=== PATIENT | male | born 1995 | race Caucasian/White ===

== ENCOUNTER 2024-06-09 20:01 | Emergency (ER) | payer MEDICAID ==
[~2024-06-09] VITALS: Ht 182.9 cm; Wt 80.7 kg
[~2024-06-09 20:01] MED LIST: FLUT16SP10 NS; IBUP-862 PO
[2024-06-09] MEDS ORDERED: DOXY-460 PO (21:00)
[2024-06-09] MEDS: DOXYCYCLINE 100MG CAPSULE PO STA (21:07)
[2024-06-09 21:25] VITALS: BP 125/64; PULSE 72; RESP 16; TEMP 98.5; O2SAT 100
== END 2024-06-09 21:14 | disposition home or self-care (01) ==
LOC: ER 20:01
DX: L03.111 Cellulitis of right axilla (principal); Z88.0 Allergy status to penicillin
CPT/HCPCS: 99283; A6449

== ENCOUNTER 2024-08-26 23:49 | Emergency (ER) | payer MEDICAID ==
[~2024-08-26] VITALS: Ht 182.9 cm; Wt 81.8 kg
[2024-08-27 00:05] VITALS: TEMP 98.8
[2024-08-27] MEDS ORDERED: SERT-432 PO (00:35)
[2024-08-27] MEDS ORDERED: TRAZ-251 PO (00:36)
[2024-08-27 01:29] LABS: BASOPHILS % (AUTO) 0.7 % (0-1); EOSINOPHILS # (AUTO) 0.2 X10'3 (0-0.9); EOSINOPHILS % (AUTO) 3.4 % (0-6); HEMATOCRIT 41.7 % (42.0-52.0); HEMOGLOBIN 14.4 g/dl (14.0-17.9); LYMPHOCYTES # (AUTO) 1.3 X10'3 (1.1-4.8); LYMPHOCYTES % (AUTO) 24.8 % (21-51); MEAN CORPUSCULAR HEMOGLOBIN 30.1 PG (27.0-31.0); MEAN CORPUSCULAR HGB CONC 34.5 g/dL (33.0-36.5); MEAN CORPUSCULAR VOLUME 87.4 FL (78-98); MEAN PLATELET VOLUME 8.2 FL (7.4-10.4); MONOCYTES # (AUTO) 0.5 X10'3 (0-0.9); MONOCYTES % (AUTO) 9.1 % (2-12); NEUTROPHILS # (AUTO) 3.2 X10'3 (1.8-7.7); PLATELET COUNT 207 X10'3 (140-440); RED BLOOD COUNT 4.78 X10'6 (4.70-6.10); RED CELL DISTRIBUTION WIDTH 13.3 % (11.5-14.5); WHITE BLOOD COUNT 5.1 X10'3 (4.5-11.0)
[2024-08-27 01:36] LABS: ALBUMIN 3.9 G/DL (3.4-5.0); ANION GAP 4 (8-16); BLOOD UREA NITROGEN 16 MG/DL (7-18); BUN/CREATININE RATIO 16.5 (10.0-20.0); CALCIUM 8.4 MG/DL (8.5-10.1); CHLORIDE 109 MMOL/L (99-107); CREATININE 0.97 MG/DL (0.60-1.10); ETHANOL < 10 MG/DL (<10); GLUCOSE 140 MG/DL (70-104); POTASSIUM 4.1 MMOL/L (3.5-5.1); SODIUM 141 MMOL/L (135-145); eCRCL 123 ML/MIN; eGFR > 90 ML/MIN
[2024-08-27 04:06] VITALS: BP 118/68; PULSE 80; RESP 16; O2SAT 99
[2024-08-27] MEDS ORDERED: SERT-153 PO (10:31)
== END 2024-08-27 04:09 | disposition home or self-care (01) ==
LOC: ER 23:49
DX: F32.A Depression, unspecified (principal); R45.851 Suicidal ideations; Z88.0 Allergy status to penicillin; Z20.822 Contact with and (suspected) exposure to COVID-19
CPT/HCPCS: 36415; 80048; 80320; 85025; 87811; 99283

== ENCOUNTER 2024-08-27 09:25 | Emergency (ER) | payer MEDICAID ==
[~2024-08-27] VITALS: Ht 182.9 cm; Wt 86.2 kg
[~2024-08-27 09:25] MED LIST changes: +SERT-432 PO; +TRAZ-251 PO
[2024-08-27] MEDS ORDERED: SERT-153 PO (10:31)
[2024-08-27] MEDS: LORazepam 1 MG tablet PO ONE (10:48)
[2024-08-27 11:08] VITALS: BP 131/78; PULSE 68; RESP 16; TEMP 98; O2SAT 99
== END 2024-08-27 11:11 | disposition home or self-care (01) ==
LOC: ER 09:25
DX: F41.9 Anxiety disorder, unspecified (principal); R45.851 Suicidal ideations; F32.A Depression, unspecified; Z88.0 Allergy status to penicillin
CPT/HCPCS: 99283

== ENCOUNTER 2024-08-28 20:35 | Emergency (ER) | payer MEDICAID ==
[~2024-08-28] VITALS: Ht 182.9 cm; Wt 85.0 kg
[~2024-08-28 20:35] MED LIST changes: +SERT-153 PO
[2024-08-28] MEDS: ketorolac trometh 15mg/ml vial 15 MG/ML ML IM ONE (22:22)
[2024-08-28 22:32] VITALS: BP 120/70; PULSE 86; RESP 18; TEMP 98.6; O2SAT 99
== END 2024-08-28 22:33 | disposition home or self-care (01) ==
LOC: ER 20:36
DX: M25.521 Pain in right elbow (principal); F17.200 Nicotine dependence, unspecified, uncomplicated; Z88.0 Allergy status to penicillin; V00.131A Fall from skateboard, initial encounter; Y93.51 Activity, roller skating (inline) and skateboarding; Y92.89 Other specified places as the place of occurrence of the external cause; Y99.8 Other external cause status
CPT/HCPCS: 73080; 96372; 99283; J1885

== ENCOUNTER 2024-10-06 08:37 | Emergency (ER) | payer MEDICAID ==
[~2024-10-06] VITALS: Ht 182.9 cm; Wt 86.7 kg
[~2024-10-06 08:37] MED LIST changes: -FLUT16SP10 NS; -IBUP-862 PO; -SERT-153 PO
[2024-10-06 08:41] VITALS: BP 109/64; PULSE 76; RESP 16; O2SAT 100
--- NOTE | 2024-10-06 09:56 | Physician Documentation ---
History of Present Illness ~ Chief Complaint: Mouth Pain Stated Complaint: UPPER LIP SWELLING Time Seen by MD: 09:04 Primary Medical Doctor: [facility] Source: patient Mode of Arrival: POV Exam Limitations: no limitations HPI 28-year-old male with chief complaint painful area at the bottom of his right nostril which started a few days ago. No precipitating injury or event. No pre arrival treatment. States he has never had anything like this before. Reports that the pain worsens when he applies any pressure to the area. No drainage. No fever, chills, lip pain, mouth pain, headaches, sinus pain. Medication Reconciliation Allergies: Coded Allergies: Penicillins (Verified Allergy, Unknown, rash, 08/27/24) Uncoded Allergies: CILLI (Allergy, Unknown, 10/27/14) all cillins Scheduled Sertraline HCl (Sertraline HCl), 1 TAB PO DAILY, (Reported) Scheduled PRN Trazodone HCl (Trazodone HCl), 1 TAB PO HS PRN for pain, (Reported) Past Medical History Past Medical History: No Pertinent History, Anxiety, Depression Past Surgical History: no surgical history Drug Use: none Lives In: Other Review of Systems All Other Systems at this time: Reviewed and Negative Physical Exam Vital Signs: Temperature: 98.2, Source: Oral, Heart Rate: 76, Respiratory Rate: 16, BP: 109/64, Pulse Oximetry: 100, Weight: 86.700 Oxygen Flow Rate: 0 Physical Exam GENERAL: Alert, no acute distress. HEENT: NCAT, EOMI, PERRL, RIGHT BASE OF NARE ERYTHEMATOUS AND EDEMATOUS, MOST OF THE EDEMA AND ERYTHEMA SURROUND A HAIR FOLLICLE JUST INSIDE THE RIGHT NOSTRIL. EDEMA AND ERYTHEMA DOES NOT EXTEND INTO LIP. NECK: Supple, trachea midline. NO CERVICAL LAD OR TTP. CARDIAC: Regular rate and rhythm, no murmurs, rubs, or gallops. RESPIRATORY: Equal breath sounds, clear to auscultation bilaterally, no respiratory distress. MUSCULOSKELETAL: Normal range of motion, nontender, no swelling. Normal gait. NEUROLOGICAL: Awake, alert, and oriented x 3. SKIN: Warm/dry, no pallor, no rash. PSYCH: Alert and appropriate. Affect congruent with mood. Speech is clear. Good eye contact. Progress Results/Orders Results/Orders Vital Signs 10/06/24 08:41 Temp 98.2 Pulse 76 Resp 16 B/P (MAP) 109/64 Pulse Ox 100 O2 Flow Rate 0 Medical Decision Making Nose Diff. Dx: Considerations: Include: Abrasion, Anterior nasal bleed, Avulsion, Contusion, Coagulopathy, Fracture-nasal bone, Fracture-septum, Hypertension, Laceration, Posterior nasal bleed, Retained foreign body, Septal hematoma Departure Time of Disposition: 09:56 Disposition: 01 HOME / SELF CARE / HOMELESS Impression: Primary Impression: Pustule of nostril Condition: Stable Discharge Instructions: Nasal Abscess Additional Instructions: START ANTIBIOTIC WARM COMPRESSES TO AREA IF FEVER, CHILLS, INCREASING PAIN OR SWELLING RETURN TO ER Referrals: NO PRIMARY CARE PROVIDER (PCP) Prescriptions Mupirocin* (Bactroban*) 22 Gm Tube 1 APPLIC TOP Q8H for 7 Days, #22 GM apply to affected area(s) Prov: LEONA CLOUD 10/06/24 Sulfamethoxazole/Trimethoprim (Bactrim Ds Tablet) 800 Mg-160 Mg Tablet 1 TAB PO Q12H for 10 Days, #20 TAB Prov: LEONA CLOUD 10/06/24 Education Educated: Patient Educated regarding: diagnosis, treatment, need for follow up Signature Scribe Signature: X Attestation: LEONA KATHLEEN October 06, 2024 09:56
[2024-10-06] MEDS ORDERED: SULF1TAB49 PO (09:57)
[2024-10-06] MEDS ORDERED: MUPI22OI30 TOP (09:57)
[2024-10-06 10:05] VITALS: TEMP 98.2
[2024-10-07] MEDS ORDERED: LIDO30CR TOP (22:45)
[2024-10-07] MEDS ORDERED: HYDR-3973 PO (22:45)
== END 2024-10-06 10:06 | disposition home or self-care (01) ==
LOC: ER 08:38
DX: L08.9 Local infection of the skin and subcutaneous tissue, unspecified (principal); Z88.0 Allergy status to penicillin; Z79.899 Other long term (current) drug therapy
CPT/HCPCS: 99283

== ENCOUNTER 2024-10-07 21:40 | Emergency (ER) | payer MEDICAID ==
[~2024-10-07] VITALS: Ht 182.9 cm; Wt 85.8 kg
[~2024-10-07 21:40] MED LIST changes: +MUPI22OI30 TOP; +SULF1TAB49 PO
[2024-10-07] MEDS ORDERED: HYDR-3973 PO (22:45)
[2024-10-07] MEDS ORDERED: LIDO30CR TOP (22:45)
--- NOTE | 2024-10-07 22:46 | Physician Documentation ---
History of Present Illness ~ Chief Complaint: Wound Re-Check Stated Complaint: MOUTH PAIN Time Seen by MD: 22:07 Primary Medical Doctor: [facility] HPI 28-year-old male reports a chief complaint of wound check. Patient currently has pain to his right Velásquez due to an ingrown hair he was diagnosed with a recently. Patient is given Bactrim and bacitracin but states he is still endorsing pain. Patient currently denies fevers or chills. Patient states he is having pain secondary to the wound which he states isn't getting any better but he has not progressing either. Denies active drainage or discharge. No other complaints at this time Tetanus within 5 years?: Yes Medication Reconciliation Allergies: Coded Allergies: Penicillins (Verified Allergy, Unknown, rash, 08/27/24) Uncoded Allergies: CILLI (Allergy, Unknown, 10/27/14) all cillins Scheduled Mupirocin* (Bactroban*), 1 APPLIC TOP Q8H Sertraline HCl (Sertraline HCl), 1 TAB PO DAILY, (Reported) Sulfamethoxazole/Trimethoprim (Bactrim Ds Tablet), 1 TAB PO Q12H Scheduled PRN Trazodone HCl (Trazodone HCl), 1 TAB PO HS PRN for pain, (Reported) Past Medical History Past Medical History: No Pertinent History, Anxiety, Depression Past Surgical History: no surgical history Drug Use: none Lives In: Other Physical Exam Vital Signs: Temperature: 98.5, Source: Oral, Heart Rate: 63, Respiratory Rate: 16, BP: 116/77, Pulse Oximetry: 97, Weight: 85.800 Oxygen Flow Rate: 0 Physical Exam General: Well developed, well nourished, no distress. HEENT: Right nares positive for a indurated erythematous mass to the right Velásquez which he is positive for tenderness to palpation. Negative for active drainage or discharge. Neck: Full range of motion, supple. Respiratory: Lungs clear, no respiratory distress. Chest: No accessory muscle use, nontender. Cardiovascular: Regular rate and rhythm. Gastrointestinal: Soft, nontender, nondistended. Bowel sounds present. Extremities: Normal range of motion, nontender, normal capillary refill, no deformity. Back: No midline tenderness, no CVA tenderness. Neurologic: Oriented x4. Distal gross motor and sensory intact all four extremities. Moves all 4 extremities spontaneously. Psychiatric: Normal mood and affect. Skin: Normal color, warm and dry. No edema, no ecchymosis Progress Results/Orders Results/Orders Vital Signs 10/07/24 21:50 Temp 98.5 Pulse 63 Resp 16 B/P (MAP) 116/77 Pulse Ox 97 O2 Flow Rate 0 Medical Decision Making Additional info obtained from: old records Findings After detailed discussion and joint medical decision-making, diagnostic and imaging results were discussed with the patient. At this time patient we will be given medication for pain but advised to continue with the Bactrim. Patient will be given topical medication as well. ER precautions were given. At this time and I and does not warranted due to wound being indurated versus fluctuant. Patient agrees to this. Patient advised to also apply warm compress. ER precautions were given. Patient is stable upon discharge. All patient questions answered to satisfaction Differential Dx:Considerations: Include: Abscess, Cellulitis, Dressing change, Healing wound Departure Disposition: 01 HOME / SELF CARE / HOMELESS Impression: Primary Impression: Cellulitis Additional Impression: Pustule of nostril Condition: Stable Discharge Instructions: Abscess, Care After, Wound Care, Adult Referrals: NO PRIMARY CARE PROVIDER (PCP) Prescriptions Lidocaine/Prilocaine (Lidocaine-Prilocaine Cream) 2.5 %-2.5 % Cream..g. 1 APPLIC TOP UD, #30 GM 0 Refills Prov: HANNAH SOTELO 10/07/24 Hydrocodone Bit/Acetaminophen (Hydrocodone-Apap 10-325 Tablet) 10mg/325mg Tablet 1 TAB PO QID PRN PRN for pain for 5 Days, #20 TAB Prov: HANNAH SOTELO 10/07/24 Education Educated: Patient Educated regarding: diagnosis, treatment Signature Scribe Signature: none used Attestation: Scribed for Hannah Sotelo by Hannah FARLEY . 10/07/24 22:46 HANNAH SOTELO October 07, 2024 22:46
[2024-10-07] MEDS: ondansetron 4mg rapidly disintigrating tab PO ONE (23:07)
[2024-10-07] MEDS: ketorolac trometh 30MG/ML vial 30 MG/ML VIAL IM ONE (23:09)
[2024-10-07] MEDS: HYDROcodone/acetaminophen 5mg/325mg tablet PO ONE (23:11)
[2024-10-07] MEDS: dexamethasone sod phosphate 10mg/ml inj IM STA (23:12)
[2024-10-07] MEDS: CefTRIAXone 1000mg IM Kit (w/lidocaine diluent) IM ONE (23:14)
[2024-10-08 00:22] VITALS: BP 116/71; PULSE 68; RESP 16; TEMP 98.5; O2SAT 98
[2024-10-09] MEDS ORDERED: CEPH-585 PO (22:04)
== END 2024-10-08 00:25 | disposition home or self-care (01) ==
LOC: ER 21:41
DX: J34.0 Abscess, furuncle and carbuncle of nose (principal); L08.9 Local infection of the skin and subcutaneous tissue, unspecified; Z88.0 Allergy status to penicillin; Z79.899 Other long term (current) drug therapy
CPT/HCPCS: 96372; 99284; J0696; J1100; J1885

== ENCOUNTER 2024-10-09 21:08 | Emergency (ER) | payer MEDICAID ==
[~2024-10-09] VITALS: Ht 182.9 cm; Wt 85.8 kg
[~2024-10-09 21:08] MED LIST changes: +HYDR-3973 PO; +LIDO30CR TOP
--- NOTE | 2024-10-09 21:20 | Physician Documentation ---
History of Present Illness ~ Stated Complaint: FACIAL SWELLING Time Seen by MD: 21:09 Primary Medical Doctor: [facility] HPI 28-year-old male returns to the ED for ongoing complaints of an abscess inferior aspect of the right side patient has no was placed on Bactrim. Since the have increased pain swelling has been vomiting. Day of Onset: October 09, 2024 Tetanus Within 5 Years: Yes Medication Reconciliation Allergies: Coded Allergies: Penicillins (Verified Allergy, Unknown, rash, 08/27/24) Uncoded Allergies: CILLI (Allergy, Unknown, 10/27/14) all cillins Scheduled Cephalexin*Monohydrate* (Keflex*), 1 CAP PO QID Lidocaine/Prilocaine (Lidocaine-Prilocaine Cream), 1 APPLIC TOP UD Mupirocin* (Bactroban*), 1 APPLIC TOP Q8H Sertraline HCl (Sertraline HCl), 1 TAB PO DAILY, (Reported) Sulfamethoxazole/Trimethoprim (Bactrim Ds Tablet), 1 TAB PO Q12H Scheduled PRN Hydrocodone Bit/Acetaminophen (Hydrocodone-Apap 10-325 Tablet), 1 TAB PO QID PRN PRN for pain Trazodone HCl (Trazodone HCl), 1 TAB PO HS PRN for pain, (Reported) Past Medical History Past Medical History: No Pertinent History, Anxiety, Depression Past Surgical History: no surgical history Drug Use: none Lives In: Other Review of Systems All Other Systems at this time: Reviewed and Negative ROS As stated above in the HPI, otherwise all systems are reviewed and negative. Physical Exam Physical Exam General: Alert, no apparent distress. HEENT: PERRL, EOMI, no injection, moist mucous membranes. erythema septumswelling Respiratory: Lungs clear, no respiratory distress. Procedures I & D Procedure : Anesthesia: Lidocaine Blade Size: 11 Prep/Supplies: betadine prep Incision: pus drained Tolerated Procedure Well?: yes, no complications Progress Results/Orders Results/Orders Orders - MATI DUTTA RECREATIONAL COUNSELOR Laceration/I&D Tray Set Up (10/09/24 ) General Nursing Order (10/09/24 ) Completed Orders - MATI DUTTA RECREATIONAL COUNSELOR Lidocaine 1% 30ml Vial (Xylocaine 1% Via (10/09/24 21:22) Medications Received in ER Medications (Trade) Dose Ordered Sig/Calvin Route PRN Reason Start Time Stop Time Status Last Admin Dose Admin (Xylocaine 1% vial) ONCE STAT SQ 10/09/24 21:22 10/09/24 21:24 DC 10/09/24 21:39 10 ML Vital Signs 10/09/24 10/09/24 21:10 21:29 Temp 98.0 Pulse 69 Resp 16 B/P (MAP) 124/75 Pulse Ox 100 O2 Flow Rate 0 Medical Decision Making Findings Was able to drain gross purulent discharge from the right side of patient's septum.. Patient tolerated procedure well. Going to add Keflex to his medication regimen for better coverage in addition to the previously prescribed Bactrim Differential Dx:Considerations: Include: Abscess, Bacteremia, Cellulitis, Erysipelas, Felon, Gas gangrene, Hidrademitis suppurativa, Impetigo, Lymphangitis, Osteromyelitis, Paronychia, Septicemia, Other Departure Disposition: HOME / SELF CARE / HOMELESS Impression: Primary Impression: OTHER ABSCESS OF PHARYNX Additional Impression: CELLULITIS AND ABSCESS OF MOUTH Condition: Improved Discharge Instructions: Abscess, Dental Additional Instructions: It is important that you continue to express the purulent discharge that is coming from your nasal septum. . Make sure you you pickling tank operator the other antibiotic as this will help expedite healing. Referrals: NO PRIMARY CARE PROVIDER (PCP) Prescriptions Cephalexin*Monohydrate* (Keflex*) 500 Mg Capsule 1 CAP PO QID, #40 CAP Prov: MATI DUTTA RECREATIONAL COUNSELOR 10/09/24 Education Educated: Patient Educated regarding: diagnosis Signature Scribe Signature: v Attestation: The note accurately reflects work and decisions made by me.Mati Dutta - VANESSA 10/09/24 22:05 MATI DUTTA NP October 09, 2024 21:20
[2024-10-09] MEDS: LIDOcaine 1% 30ml preserv. free vial SQ STA (21:39)
[2024-10-09] MEDS ORDERED: CEPH-585 PO (22:04)
[2024-10-09] MEDS: ondansetron 4mg rapidly disintigrating tab PO ONE (22:46)
[2024-10-09 22:55] VITALS: BP 122/74; PULSE 70; RESP 18; TEMP 98.6; O2SAT 99
== END 2024-10-09 22:56 | disposition home or self-care (01) ==
LOC: ER 21:08
DX: J39.1 Other abscess of pharynx (principal); K12.2 Cellulitis and abscess of mouth; Z88.0 Allergy status to penicillin; Z79.899 Other long term (current) drug therapy
CPT/HCPCS: 10060; 99283; J2003